=== PATIENT | male | born 1940 | race Caucasian/White ===

== ENCOUNTER 2023-10-20 06:45 | Day surgery (SDC) | payer MEDICARE, OTHER, SELFPAY ==
[2023-09-29 10:53] VITALS: BMI 28.1
[2023-10-20] VITALS (12 sets, daily range): BP systolic 147–184; BP diastolic 69–100; BMI 27.4
--- NOTE | 2023-10-20 08:16 | W.ICD.CONTRA ---
Post ICD/SENIOR ASIC DESIGN ENGINEER-D
-
History of HI?: Yes
LV Function
Left ventricular function study result?: Ejection Fraction >/= 40%
ACEI/ARB/ARNI
Patient already on ACEI/ARB/ARNI: Yes
Beta-Pj
Patient already on Beta Pj: No
Beta Pj Not Indicated: Left Ventricular EF >/= 40%
--- NOTE | 2023-10-20 09:50 | PTCARENOTE ---
Small pea sized oozing noted on left anterior ICD chest permaseal dressing. Site marked. Yesy CABRERA made aware. Will continue to monitor.
--- NOTE | 2023-10-20 10:00 | PTCARENOTE ---
Left anterior chest permaseal dressing with small opening in bottom center of dressing where a gap in dressing is located. Pt's requesting dressing is to be changed. Yesy CABRERA made aware and states dressing can not be changed due to dressing
placed in sterile environment in procedure room. Yesy CABRERA ordered to reinforce dressing. Large tegaderm x2 placed over left anterior chest permaseal dressing. Pt and pt's stated they were happy with reinforcement. No change in previous small
pea sized oozing noted. Will continue to monitor.
--- NOTE | 2023-10-20 10:36 | ITS.CL.ICD ---
[employer] - ICD
Implantable Cardioverter Defibrillator
Procedure Report:
Date of Procedure: October 20, 2023.
Procedures: Dual chamber ICD generator change: ICD Pulse Generator Explantation and ICD Pulse Generator Implantation.
Indication: ICD at the elective replacement interval. Secondary prevention ICD. In 2016 he had syncope and a positive EP study for VT. He now has persistent AFib.
Performing physician: Dann Hastings MD, [facility].
Implant: ICD Pulse Generator: Medtronic; Model# [id number]; Serial# [id number].
Explanted ICD Pulse Generator (Implanted January 12, 2016): Medtronic; Model# [id number]; Serial# [id number].
Retained Leads (Implanted January 12, 2016):
Atrial Lead: Medtronic; Model# 5076-52cm; Serial# [id number].
Ventricular Lead: Medtronic; Model# [id number]-62; Serial# [id number].
Technique: A time out was performed. The procedure site was identified. The patient was anesthetized by the anesthesia service. Preoperative cefazolin was administered prior to the skin incision. The patient was prepped and draped in the usual
fashion. Local anesthetic was applied to the left prepectoral subcutaneous tissue. A 3 inch incision was made over the pulse generator. The capsule was entered with Bovie cautery. The old ICD pulse generator was explanted. No Bovie cautery was
applied to the lead system. The leads were appropriately attached to the new ICD pulse generator. The pocket was revised to allow the new device to be inserted. The pocket was irrigated with antibiotic solution. Hemostasis was excellent. The device
and leads were placed in the pocket. The incision was closed in three layers with absorbable suture. Steri-strips and an silver impregnated dressing were applied. The estimated blood loss was 2 mL. There were no complications. No fluoroscopy was
used.
Lead Analysis:
RA lead: AFib: 0.6 mV; Impedance: 513] ohms.
RV lead: R: 13 mV; Threshold: 0.75 V @ 0.4 ms; Impedance: 437 ohms. HVB 108.
Final Programming: VT/VF 188 bpm; Gilberto: MVP (AAIR to DDDR) 60-120 bpm.
Conclusion: Uncomplicated ICD change. The ICD system is MRI conditional.
Recommendation: Routine post ICD care.
== END 2023-10-20 10:32 | disposition home or self-care (01) ==
LOC: CATH 06:45
PROVIDERS: ATTENDING PHYSICIAN Internal Medicine Cardiovascular Disease; FAMILY PHYSICIAN Family Medicine
DX: Z45.02 Encounter for adjustment and management of automatic implantable cardiac defibrillator (principal); I47.20 Ventricular tachycardia, unspecified; I49.5 Sick sinus syndrome; I25.10 Atherosclerotic heart disease of native coronary artery without angina pectoris; I48.19 Other persistent atrial fibrillation; I10 Essential (primary) hypertension; E78.5 Hyperlipidemia, unspecified; G47.33 Obstructive sleep apnea (adult) (pediatric); E03.9 Hypothyroidism, unspecified; K76.0 Fatty (change of) liver, not elsewhere classified; N32.0 Bladder-neck obstruction; R91.8 Other nonspecific abnormal finding of lung field; G31.84 Mild cognitive impairment of uncertain or unknown etiology; N40.1 Benign prostatic hyperplasia with lower urinary tract symptoms; R33.8 Other retention of urine; Z95.1 Presence of aortocoronary bypass graft; Z79.01 Long term (current) use of anticoagulants; I45.2 Bifascicular block
CPT/HCPCS: 33263; 93005; C1721

== ENCOUNTER → 2024-02-16 12:24 | Outpatient (REF) | payer MEDICARE, OTHER, SELFPAY | LOC: RAD 12:24 | PROVIDERS: ATTENDING PHYSICIAN Psychiatry & Neurology Neurology; FAMILY PHYSICIAN Family Medicine | DX: R41.3 Other amnesia (principal) | CPT/HCPCS: 70450 ==

== ENCOUNTER 2024-05-05 15:22 | Emergency (ER) | payer MEDICARE, OTHER, SELFPAY ==
[2024-05-05] VITALS (8 sets, daily range): BP systolic 135–155; BP diastolic 65–117; BMI 26.8
--- NOTE | 2024-05-05 16:11 | ED.GENMED ---
History of Present Illness
General
Chief Complaint: Chest Pain
Source: patient
Exam Limitations: none
Time Seen by Provider: 05/05/24 15:54
History of Present Illness
History of Present Illness:
83-year-old male with history of coronary artery disease status post bypass surgery, A-fib has pacer defibrillator on Eliquis presents complaining of left-sided chest pain and arm pain that started after playing pickle ball today. He fell while
playing. He was bandaged up and went back to play. He played for another half hour. He was not short of breath. The pain is made worse with motion. No nausea vomiting. No leg pain. No other
Past History
Past History
ED Past Medical History: HTN, Hypercholesterolemia, Hypothyroidism and Other (Small nodules on his lungs which is being followed)
ED Past Surgical History: None and Cardiac
Social History
Tobacco: Non-smoker
Alcohol: Daily
Personal:
Living: with family
Employment: Retired
Family History
Family History: Other (Noncontributory)
Phy Exam
Physical Exam
Physical Exam:
General: Well-appearing male no acute respiratory distress
HEENT: Normocephalic atraumatic
Heart: Regular rate and rhythm
Lungs: Clear no wheeze
Extremities: Mild pitting edema bilateral lower extremities
Skin: Warm no rash
Musculoskeletal exam: Patient is tender and reproducibly tender to the touch over the left upper chest wall. He has good range of motion to the arm.
Scores
Heart Score for Chest Pain Patients
STEMI patient?: No
History: Slightly or Non-Suspicious
ECG: Normal
Age: >/= 65 years
Risk Factors: >/= 3 Risk Factors or History of CAD
Troponin: </= Normal Limit
Heart Score for Chest Pain Patients: 4
Heart Score Risk: 20.3% MACE over next 6 weeks
Course
Orders/Labs/Results
Orders:
Orders
05/05/24 15:24
ECG [Electrocardiogram (*1)] Urgent
Reason for Study: Shortness of Breath
EKG- Treatment ONCE
05/05/24 16:08
Complete Blood Count/With Diff Urgent
Comprehensive Metabolic Panel Urgent
NT-proBNP Urgent
Troponin I Urgent
05/05/24 16:09
CR Ribs-left 3 Vw W/pa Chest Urgent
Comment:
Reason For Exam: left chest pain
05/05/24 18:48
Troponin I Urgent
Abnormal Lab Results
05/05/24
16:08
RBC 4.36 L 10^6/uL
(4.70-6.10)
MCV 97.7 H fL
(80.0-94.0)
MCH 33.3 H pg
(27.0-31.0)
MPV 10.9 H fL
(7.4-10.4)
Absolute Lymphs (auto) 0.9 L 10^3/uL
(1.2-3.4)
Neutrophils % 80.6 H %
(42.2-75.2)
Lymphocytes % 10.9 L %
(20.5-51.1)
BUN 27 H mg/dl
(9-20)
Glucose 175 H mg/dl
(70-99)
Alkaline Phosphatase 132 H U/L
(38-126)
05/05/24 16:08
05/05/24 16:08
Vital Signs
Initial and Last Documented VS:
Initial Vital Signs
Temp Pulse Resp BP Pulse Ox
97.5 F 54 18 154/70 98
05/05/24 15:26 05/05/24 15:26 05/05/24 15:26 05/05/24 15:26 05/05/24 15:26
Last Documented Vital Signs
Temp Pulse Resp BP Pulse Ox
97.5 F 60 25 153/79 93
05/05/24 15:28 05/05/24 19:00 05/05/24 19:00 05/05/24 19:00 05/05/24 19:00
MDM/Problems Addressed
Differential Diagnosis Includes:
Patient with chest pain this followed a fall while playing pickle ball today. Question chest wall strain versus contusion versus rib fracture versus pneumo/hemothorax. He also has a history of coronary artery disease. Consider ACS as a potential
cause of chest discomfort. Unlikely to be PE secondary to anticoagulated state.
Will obtain EKG labs including troponin BNP and rib series.
EKG does show paced rhythm. There is different morphologies of the QRS complex. Sent to cardiology for their review
*Critical Care Note
Total Time (30-74mins, 75-104mins- exclusive of procedures): Not Applicable
Update Note
Update Note:
Discussed with cardiology EKG results. They reviewed this EKG and prior EKGs there is no significant concern or difference in today's EKG. Initial and repeat troponins were negative. Rib series was negative for fracture. Patient reassured. I
suspect chest discomfort is more musculoskeletal in nature. Stable for discharge
ED Attending Note
-
Portions of this chart may have been created with voice recognition software.� Occasional wrong word or��sound alike� substitutions may have occurred due to the inherent limitations of voice recognition software.
Discharge Plan
Departure
Patient Disposition: Home (Routine Discharge)
Date of Disposition: 05/05/24
Time of Disposition: 19:45
Patient with high blood pressure during this ER visit?: No
Discharge Problem:
Chest wall pain
Instructions: Chest Pain That Is Not Caused by the Heart (DC)
Prescriptions:
No Action
lisinopril 5 mg Tablet
5 mg PO QPM
atorvastatin 40 MG tablet
60 mg PO QPM
Eliquis 5 MG tablet
5 mg PO BID
finasteride 5 mg tablet
5 mg PO DAILY Qty: 14 0RF
levothyroxine 75 mcg Tablet
75 mcg PO DAILY
mecobalamin (vitamin B12) [B12 Active] 1,000 mcg Tablet,Chewable
1,000 mcg PO QPM
loratadine [Claritin] 10 mg Tablet
10 mg PO QPM
Referrals:
Daksha Garcia MD [Family Provider] -
Activity Restrictions/Additional Instructions:
Use Tylenol if needed for pain. Return for worsening symptoms otherwise follow-up with your doctor
Interventions
Interventions:
*Risk Screen - Suicide Last Done: 05/05/24 15:32
*General Assessment Last Done: 05/05/24 15:32
*Neglect/Abuse Screening Last Done: 05/05/24 15:32
ED- Fall Risk Assessment Last Done: 05/05/24 16:05
*ED COVID-19 Vaccine History Last Done: 05/05/24 16:04
ED- Cardiac Assessment Last Done: 05/05/24 16:05
Discharge Date and Time
Print Language: SLOVAK
[2024-05-05 16:20] LABS: % Basophils 0.6 % (0-2); % Immature Granulocytes 0.2 % (0-0.5); % Lymphocytes 10.9 % (20.5-51.1); % Monocytes 6.7 % (1.7-9.3); % Neutrophils 80.6 % (42.2-75.2); Absolute Basophils 0.1 10^3/uL (0-0.2); Absolute Eosinophils 0.1 10^3/uL (0-0.7); Absolute Lymphocytes 0.9 10^3/uL (1.2-3.4); Absolute Monocytes 0.5 10^3/uL (0.1-0.6); Absolute Neutrophils 6.5 10^3/uL (1.4-6.5); Hematocrit 42.6 % (39.0-52.0); Hemoglobin 14.5 g/dL (13.0-18.0); Mean Corpuscular Hgb 33.3 pg (27.0-31.0); Mean Corpuscular Volume 97.7 fL (80.0-94.0); Mean Platelet Volume 10.9 fL (7.4-10.4); Nucleated Red Blood Cells % 0 % (-); Platelet Count 160 10^3/uL (130-400); Red Blood Cell Count 4.36 10^6/uL (4.70-6.10); Red Cell Dist. Width 12.9 % (11.5-14.5); White Blood Cell Count 8.1 10^3/uL (4.8-10.8)
[2024-05-05 16:36] LABS: ALT (SGPT) 47 U/L (0-50); AST (SGOT) 44 U/L (17-59); Albumin 4.1 g/dl (3.5-5.0); Alkaline Phosphatase 132 U/L (38-126); Blood Urea Nitrogen 27 mg/dl (9-20); Calcium 9.8 mg/dl (8.4-10.2); Carbon Dioxide 26 mmol/L (22-30); Chloride 102 mmol/L (98-107); Estimated Creatinine Clearance 48 ml/min; Glucose 175 mg/dl (70-99); Potassium 4.7 mmol/L (3.5-5.1); Sodium 138 mmol/L (135-145); Total Protein 7.1 g/dl (6.3-8.2); eGFR > 60.00
[2024-05-05 16:42] LABS: NT-proBNP 943 pg/ml; Troponin I < 0.012 ng/ml
[2024-05-05 19:18] LABS: Troponin I 0.013 ng/ml
== END 2024-05-05 19:58 | disposition home or self-care (01) ==
LOC: EMR 15:22
PROVIDERS: Physician Assistant; EMERGENCY PHYSICIAN Student in an Organized Health Care Education/Training Program; FAMILY PHYSICIAN Family Medicine
DX: R07.89 Other chest pain (principal); W19.XXXA Unspecified fall, initial encounter
CPT/HCPCS: 99285; 71101; 80053; 83880; 84484; 85025; 93005